=== PATIENT | female | born 1960 | race African-American/Black ===

== ENCOUNTER 2017-03-03 09:31 | Emergency (ER) | payer MEDICAID ==
[~2017-03-03] VITALS: Ht 157.5 cm; Wt 77.0 kg
[2017-03-03 11:30] VITALS: BP 120/78
[2017-03-03] MEDS ORDERED: LACTULOSE 20G/30ML UDC PO ONE (11:30)
[2017-03-03] MEDS ORDERED: MAGNESIUM CITRATE 300ML SOLUTION PO ONE (11:30)
== END 2017-03-03 11:46 | disposition home or self-care (01) ==
LOC: ER 09:55
DX: K59.00 Constipation, unspecified (principal); R56.9 Unspecified convulsions; G40.909 Epilepsy, unspecified, not intractable, without status epilepticus
CPT/HCPCS: 74000; 99283

== ENCOUNTER 2017-06-01 11:42 | Emergency (ER) | payer MEDICAID ==
[~2017-06-01] VITALS: Ht 157.5 cm; Wt 78.0 kg
[2017-06-01] MEDS ORDERED: PHEN100C4 PO (12:01)
[2017-06-01] MEDS ORDERED: ALBUTEROL (0.083%) 2.5MG/3ML NEB HHN STA (12:50)
[2017-06-01 13:53] VITALS: BP 122/73
== END 2017-06-01 13:55 | disposition home or self-care (01) ==
LOC: ER 13:12
DX: J06.9 Acute upper respiratory infection, unspecified (principal); J98.01 Acute bronchospasm; G40.909 Epilepsy, unspecified, not intractable, without status epilepticus; Z98.890 Other specified postprocedural states
CPT/HCPCS: 94640; 99283; J7611

== ENCOUNTER 2017-08-13 11:16 | Emergency (ER) | payer MEDICAID ==
[~2017-08-13] VITALS: Ht 157.5 cm; Wt 77.0 kg
[~2017-08-13 11:16] MED LIST: PHEN100C4 PO
[2017-08-13] MEDS ORDERED: PREDNISONE 20MG TABLET PO STA (13:12)
[2017-08-13] MEDS ORDERED: IPRATROPIUM BROMIDE (0.02%) 0.5MG/2.5ML NEB HHN STA (13:12)
[2017-08-13] MEDS ORDERED: ALBUTEROL (0.083%) 2.5MG/3ML NEB HHN STA (13:12)
[2017-08-13 14:49] VITALS: BP 124/74
== END 2017-08-13 14:52 | disposition home or self-care (01) ==
LOC: ER 11:16
DX: J45.901 Unspecified asthma with (acute) exacerbation (principal); J20.9 Acute bronchitis, unspecified; G40.909 Epilepsy, unspecified, not intractable, without status epilepticus; F17.200 Nicotine dependence, unspecified, uncomplicated
CPT/HCPCS: 71045; 94640; 99283; J7512; J7611

== ENCOUNTER 2019-06-04 08:33 | Emergency (ER) | payer MEDICAID ==
[~2019-06-04] VITALS: Ht 157.5 cm; Wt 75.0 kg
[2019-06-04 08:38] VITALS: BP 111/84
== END 2019-06-04 09:09 | disposition home or self-care (01) ==
LOC: ER 08:33
DX: H66.93 Otitis media, unspecified, bilateral (principal); R05 Cough; R50.9 Fever, unspecified; J45.909 Unspecified asthma, uncomplicated; Z98.890 Other specified postprocedural states
CPT/HCPCS: 99283

== ENCOUNTER 2020-01-19 16:10 | Emergency (ER) | payer MEDICAID ==
[~2020-01-19] VITALS: Ht 160 cm; Wt 80.0 kg
[2020-01-19 16:23] VITALS: BP 105/62
[2020-01-19 18:11] LABS: BASOPHILS % 0.8 % (0.0-2.0); HEMATOCRIT. 31.5 % (36.0-48.0); HEMOGLOBIN. 10.3 g/dL (12.0-16.0); LYMPHOCYTES % 35.1 % (20.0-50.0); MEAN CORPUSCULAR HEMOGLOBIN 28.3 pg (28.0-32.0); MEAN CORPUSCULAR VOLUME 86.4 fL (81.0-99.0); MONOCYTES % 6.9 % (2.0-8.0); NEUTROPHILS % 55.2 % (40.0-76.0); PLATELET 190 x1000/uL (130-400); RED BLOOD CELL COUNT 3.65 mill/uL (4.2-5.4); RED CELL DISTRIBUTION WIDTH 14.3 % (11.6-14.6)
[2020-01-19 18:17] LABS: CHLORIDE 109 mEq/L (98-107)
[2020-01-19 18:28] LABS: B-HCG QUANTITATIVE < 1 mIU/mL (<3)
[2020-01-19 19:15] LABS: CLARITY URINE TURBID (CLEAR); COLOR URINE RED (YELLOW); KETONES URINE NEGATIVE (NEGATIVE); LEUKOCYTE ESTERASE URINE 2+ (NEGATIVE); NITRITE URINE NEGATIVE (NEGATIVE); OCCULT BLOOD URINE 3+ (NEGATIVE); PROTEIN URINE 2+ (NEGATIVE); SPECIFIC GRAVITY URINE 1.031 (1.005-1.030)
[2020-01-19] MEDS ORDERED: POTASSIUM CHLORIDE 20MEQ TABLET SR PO ONE (19:15)
== END 2020-01-19 20:36 | disposition home or self-care (01) ==
LOC: ER 16:10
DX: D25.9 Leiomyoma of uterus, unspecified (principal); N95.0 Postmenopausal bleeding; R03.0 Elevated blood-pressure reading, without diagnosis of hypertension; Z79.899 Other long term (current) drug therapy
CPT/HCPCS: 36415; 76830; 76856; 80053; 81003; 84702; 85025; 86850; 86900; 99284